=== PATIENT | female | born 1960 | race Hispanic/Latino ===

== ENCOUNTER 2017-01-26 09:00 | Day surgery (SDC) | payer MEDICAID ==
--- NOTE | 2017-01-26 11:06 | Anesthesia Consultation ---
Anesthesia Consult and Med Hx Date of service: 01/26/17 - Airway Anesthetic Teeth Evaluation: Good, Chipped (#26) ROM Head & Neck: Adequate Mental/Hyoid Distance: Adequate Mallampati Class: Class II Intubation Access Assessment: Probably Good - Pre-Operative Health Status ASA Pre-Surgery Classification: ASA3 Proposed Anesthetic Plan: MAC - Pulmonary Hx Smoking: Yes (1 p/d x 15 years) COPD: Yes (no home O2) - Cardiovascular System Hx Hypertension: Yes (not currently being treated) Hx Heart Murmur: Yes (since age 14 yrs old) - Central Nervous System Hx Seizures: Yes (last was 9 yrs ago) CVA: Yes (possible 11 yrs ago) Hx Psychiatric Problems: Yes (PTSD) - Hematic Hx Anemia: Yes (past hx) - Other Systems Hx Alcohol Use: Yes (beer daily) Hx Cancer: No
--- NOTE | 2017-01-26 11:07 | Anesthesia Day of Surgery ---
Anesthesia Day of Surgery - Day of Surgery Patient Examined: Yes Patient H&P Reviewed: Yes Patient is NPO: Yes
[2017-01-26] MEDS: VIGAMOX OD SCH ×3 (11:10→11:20)
[2017-01-26] MEDS: AK-Dilate OD SCH ×3 (11:10→11:20)
[2017-01-26] MEDS: MYDRIACYL OD SCH ×3 (11:10→11:20)
[2017-01-26] MEDS: TETRACAINE 0.5% OD PRN ×2 (11:10→11:15)
[2017-01-26] MEDS ORDERED: ZOFRAN IV ONE (12:00)
[2017-01-26] MEDS ORDERED: VERSED ONE ×3 (12:09→12:29)
[2017-01-26] MEDS ORDERED: SUBLIMAZE ONE (12:09)
[2017-01-26] MEDS ORDERED: VISION BLUE IO ONE (12:32)
[2017-01-26] MEDS ORDERED: DIPRIVAN 10 MG/ML IV ONE (12:33)
--- NOTE | 2017-01-26 12:50 | Operative Report ---
Operative Report Operative Report: PATIENT'S NAME: DATE OF : DATE OF SURGERY: 01/26/2017 PREOPERATIVE DIAGNOSIS: Cataract hypermature right eye POSTOPERATIVE DIAGNOSIS: Same OPERATIVE PROCEDURE: Phacoemulsification with intraocular lens implantation, with trypan blue right eye SURGEON: Aura Schaefer M.D. POLYSOMNOGRAPHIC TECHNOLOGIST SURGEON: Mehnaz Lens: AO60 8.0 D ANESTHESIA: Monitored anesthesia care in combination with topical and intracameral anesthesia because of the established specific risk of reflux, arrhythmias, or anxiety attacks associated with ocular manipulation, as well as the difficulty of the marketing area manager to manage such potentially catastrophic events while simultaneously attempting to complete the surgical procedure and was deemed necessary for the patient's safety to have an Auto Slip Cover Installer present during the procedure whenever possible. An Auto Slip Cover Installer was utilized to regulate the intravenous sedation of the patient so the patient was cooperative yet not asleep in order for the patient to successfully maintain fixation of the eye on the operating light of the microscope. COMPLICATIONS: No surgical complications No blood loss. ALLERGIES: Codeine morphine PROGNOSIS: Excellent INDICATIONS FOR SURGERY: The patient is undergoing surgery in the hopes of eliminating or improving these visual difficulties. PROCEDURE: After arriving at the surgery center, the patient was given topical anesthetic and dilating drops, as noted in the record. The patient was then taken into the operating room and given more anesthetic drops. The eyelids , lashes, and lid margins were scrubbed with Betadine solution, and the patient was draped. The Nurse Auto Slip Cover Installer administered IV sedation and monitored the patient during the procedure. The eye was then fixated with a 0.12, and a stab incision was made in the peripheral clear cornea into the anterior chamber. Vision blue was injected after air to allow for cpsule visusalization.This was made on my left side. Viscoelastic was next used to fill the anterior chamber. The eye was once again fixated with the 0.12 forceps and a keratome was used make an incision in clear cornea peripherally on my right hand side temporally. The capsule forceps were used to open the central anterior capsule and then make a continuous round capsulotomy. Hydrodissection was carried out utilizing a cannula and balanced salt solution to delineate the cortical material from the capsule and the nucleus from the cortical material. The phaco tip was introduced into the eye and used to remove the anterior cortical material in the area of the capsulotomy. Then the phaco tip was buried into the nucleus, and a chopping instrument was introduced into the eye and used to provide countertraction in the nucleus between this instrument and the phaco tip fracturing the nucleus. This procedure was repeated multiple times, providing multiple small segments of the lens, and then the phaco tip was used to remove each of these segments. An I/A tip was then used to remove the remaining cortex. The anterior chamber was refilled with viscoelastic. An one-piece, acrylic intraocular lens was then placed into an inserting cartridge. The tip of the inserting cartridge was introduced into the keratome incision and into the anterior chamber. The implant was gently advanced through the cartridge and into the eye, where it unfolded, and both haptics were placed in the capsular bag, where it centered nicely and appeared to be well fixated. After placement of the intraocular lens, the I~and~A handpiece was placed back into the eye and used to remove the viscoelastic, including viscoelastic that was behind the optic of the intraocular lens. The anterior chamber was then filled with balanced salt solution, and hydration of the wound was used to cause swelling of the wound and more appropriate watertight closure. When the wound was found to be firm, the patient was asked to comment on how bright the light was. If there was no light perception at all or if the light was substantially dimmer than during the rest of the surgery, the amount of fluid in the eye was decompressed to lower the intraocular pressure until the patient could see the bright light again. This was done to avoid any damage or decreased blood flow to the optic nerve. MEDICATIONS APPLIED AT END OF SURGERY: One drop of Pred Forte and Vigamox The patient was given a shield to wear at night and was instructed not to rub or push on the eye. DISCHARGE SUMMARY: The patient was released in stable condition. The patient and those with the patient were given a written sheet of postoperative instructions and counseling on any abnormal laboratory studies. The patient is to see us tomorrow for follow-up in the office and is to call immediately for any difficulties. Aura Schaefer M.D. Date
--- NOTE | 2017-01-26 12:52 | Short Stay Summary ---
Short Stay Documentation Date of service: 01/26/17 - History H&P: obtained from office - Allergies and Medications Current Medications: Allergies codeine Allergy (Verified 01/25/17 10:53) Shortness of Breath morphine Allergy (Verified 01/25/17 10:53) Shortness of Breath Home Medications Medication Instructions Recorded Confirmed Last Taken Type diphenhydrAMINE [Benadryl CAP] 25 mg PO QHS PRN 01/25/17 01/26/17 01/25/17 History Active Medications Moxifloxacin HCl (Vigamox) 1 drops OD Q5MIN SANDRA Stop: 01/28/17 08:01 Last Admin: 01/26/17 11:20 Dose: 1 drops Phenylephrine HCl (Ak-Dilate) 1 drops OD Q5MIN SANDRA Stop: 01/28/17 08:01 Last Admin: 01/26/17 11:20 Dose: 1 drops Prednisolone Acetate (Pred Forte 1%) 1 drops OD QID SANDRA Tetracaine HCl (Tetracaine 0.5%) 1 drops OD Q5M PRN PRN Reason: Analgesia Stop: 01/26/17 23:59 Last Admin: 01/26/17 11:15 Dose: 1 drops Tropicamide (Mydriacyl) 1 drops OD Q5MIN SANDRA Stop: 01/28/17 08:01 Last Admin: 01/26/17 11:20 Dose: 1 drops - Brief post op/procedure progress note Date of procedure: 01/26/17 Pre-op diagnosis: right cataract Post-op diagnosis: same Procedure: Phacoemulsification with trypanblue and intraocular lens insertion right eye Anesthesia: MAC Surgeon: JUVENTINO PLATT Pathology: none Condition: stable - Disposition Condition at discharge: Good Disposition: DISCHARGED TO HOME OR SELFCARE - Discharge Diagnoses (1) 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
[2017-01-26 13:17] VITALS: BP 114/78
--- NOTE | 2017-01-26 13:24 | Post Anesthesia Evaluation ---
- Post Anesthesia Evaluation Patient Participated: Yes Airway Patent: Yes Stable Respiratory Function: Yes Nausea/Vomiting: No Temp > 96.8F: Yes Pain Manageable: Yes Adequeate Hydration: Yes Anesthesia Complications: No Block Receding Appropriately: Not Applicable Patient on Ventilator: No
[2017-01-26] MEDS ORDERED: PRED FORTE 1% OD SCH (14:00)
== END 2017-01-26 09:01 | disposition home or self-care (01) ==
LOC: OR 09:00
DX: H25.21 Age-related cataract, morgagnian type, right eye (principal); I10 Essential (primary) hypertension; F31.9 Bipolar disorder, unspecified; M19.90 Unspecified osteoarthritis, unspecified site; F43.10 Post-traumatic stress disorder, unspecified; F17.210 Nicotine dependence, cigarettes, uncomplicated; J44.9 Chronic obstructive pulmonary disease, unspecified; Z86.73 Personal history of transient ischemic attack (TIA), and cerebral infarction without residual deficits; Z72.89 Other problems related to lifestyle
CPT/HCPCS: 66982; J2250; J2405; J2704; V2632; J3010